=== PATIENT | female | born 1980 | race Caucasian/White ===

== ENCOUNTER 2017-05-10 17:05 | Emergency (ER) | payer OTHER ==
[~2017-05-10] VITALS: Ht 162.6 cm; Wt 70.0 kg
[~2017-05-10 17:05] MED LIST: IBUP800 PO; NEEVCAP PO; PERC5TAB12 PO
[2017-05-10 17:09] VITALS: BP 214/119; PULSE 113; RESP 18; TEMP 98.6; O2SAT 99
--- NOTE | 2017-05-10 17:31 | PD ---
Physical Exam Date Seen by Provider: May 10, 2017 Time Seen by Provider: 17:30 Narrative 37 yo female here for evaluation of HTN. seen by [employer] for regular check up and very high BP noted. Brought here for eval. No symptoms. Not . Vitals are stable in triage. Awaiting bed placement. Data Data Last Documented VS Vital Signs Date Time Temp Pulse Resp B/P (MAP) Pulse Ox O2 Delivery O2 Flow Rate FiO2 05/10/17 17:09 98.6 113 18 214/119 (150) 99 Orders Orders Electrocardiogram (05/10/17 17:25) Complete Blood Count With Diff (05/10/17 17:25) Basic Metabolic Panel (Bmp) (05/10/17 17:25) Ckmb (Isoenzyme) Profile (05/10/17 17:25) Troponin I (05/10/17 17:25) Chest, Single Ap (05/10/17 17:25) Iv Access Insert/Monitor (05/10/17 17:25) Ecg Monitoring (05/10/17 17:25) Oxygen Administration (05/10/17 17:25) Oximetry (05/10/17 17:25) Prothrombin Time / Inr (Pt) (05/10/17 17:25) MDM Medical Record Reviewed: Yes Supervised Visit with LORIN: Solo Pizano May 10, 2017 17:31
[2017-05-10 17:49] VITALS: RESP 18; O2SAT 100
--- NOTE | 2017-05-10 17:59 | PD ---
HPI Chief Complaint: Hypertension Time Seen by Provider: 17:44 Travel History International Travel<30 days: No Contact w/Intl Traveler<30days: No Traveled to known affect area: No History of Present Illness HPI 37-year-old female sent in by her resource director Dr. Watkins for evaluation of elevated blood pressure. The patient was being seen by him today for an annual checkup. Blood pressure was noted to be 180/100 and his office. She denies history of hypertension. States that she is not and has an IUD in place. She denies any symptoms such as headache, paresthesias or motor deficits , chest pain or dyspnea. PFSH Past Medical History Hypertension: Yes ?: Not LMP: IUD : 3 Para: 2 : 1 Past Surgical History Section: Yes Gynecologic Surgery: Yes (C SECTION ) Social History Alcohol Use: No Tobacco Use: No (former smoker stopped in 2006) Substance Use: No Allergies-Medications (Allergen,Severity, Reaction): Coded Allergies: No Known Allergies (Unverified , 05/10/17) Reported Meds & Prescriptions Reported Meds & Active Scripts Active Hydrochlorothiazide 25 Mg Tab 25 Mg PO DAILY Review of Systems Except as stated in HPI: all other systems reviewed are Neg Physical Exam Narrative GENERAL: Well-developed, well-nourished, comfortable, no apparent distress. SKIN: Focused skin assessment warm/dry. HEAD: Atraumatic. Normocephalic. EYES: Pupils equal and round. No scleral icterus. No injection or drainage. ENT: Mucous membranes pink and moist. NECK: Trachea midline. No JVD. CARDIOVASCULAR: Regular rate and rhythm. Distal pulses brisk and equal bilaterally. RESPIRATORY: No accessory muscle use. Clear to auscultation. Breath sounds equal bilaterally. GASTROINTESTINAL: Abdomen soft, non-tender, nondistended. MUSCULOSKELETAL: No obvious deformities. No clubbing. No cyanosis. No edema. NEUROLOGICAL: Awake and alert. No obvious cranial nerve deficits. Motor grossly within normal limits. Normal speech. PSYCHIATRIC: Appropriate mood and affect; insight and judgment normal. Data Data Last Documented VS Vital Signs Date Time Temp Pulse Resp B/P (MAP) Pulse Ox O2 Delivery O2 Flow Rate FiO2 05/10/17 17:49 18 100 Room Air 05/10/17 17:09 98.6 113 Orders Orders Electrocardiogram (05/10/17 17:25) Complete Blood Count With Diff (05/10/17 17:25) Basic Metabolic Panel (Bmp) (05/10/17 17:25) Ckmb (Isoenzyme) Profile (05/10/17 17:25) Troponin I (05/10/17 17:25) Iv Access Insert/Monitor (05/10/17 17:25) Ecg Monitoring (05/10/17 17:25) Oxygen Administration (05/10/17 17:25) Oximetry (05/10/17 17:25) Prothrombin Time / Inr (Pt) (05/10/17 17:25) Hepatic Functional Panel (05/10/17 17:52) Thyroid Stimulating Hormone (05/10/17 17:55) Free Thyroxine (T4) (05/10/17 17:55) Lipid Profile (05/10/17 17:57) Urinalysis - C+S If Indicated (05/10/17 17:57) Hydrochlorothiazide (Hydrodiuril) (05/10/17 19:15) Labs Laboratory Tests Test 05/10/17 17:45 05/10/17 17:50 Urine Color LIGHT-YELLOW Urine Turbidity CLEAR Urine pH 5.5 Urine Specific [place] 1.004 Urine Protein NEG mg/dL Urine Glucose (UA) NEG mg/dL Urine Ketones NEG mg/dL Urine Occult Blood NEG Urine Nitrite NEG Urine Bilirubin NEG Urine Urobilinogen LESS THAN 2.0 MG/DL Urine Leukocyte Esterase NEG Urine WBC LESS THAN 1 /hpf Urine Squamous Epithelial Cells 1 /hpf Microscopic Urinalysis Comment CULT NOT INDICATED White Blood Count 10.1 TH/MM3 Red Blood Count 4.79 MIL/MM3 Hemoglobin 14.2 GM/DL Hematocrit 42.4 % Mean Corpuscular Volume 88.6 FL Mean Corpuscular Hemoglobin 29.7 PG Mean Corpuscular Hemoglobin Concent 33.5 % Red Cell Distribution Width 12.9 % Platelet Count 270 TH/MM3 Mean Platelet Volume 7.8 FL Neutrophils (%) (Auto) 79.0 % Lymphocytes (%) (Auto) 15.1 % Monocytes (%) (Auto) 4.3 % Eosinophils (%) (Auto) 0.8 % Basophils (%) (Auto) 0.8 % Neutrophils # (Auto) 8.0 TH/MM3 Lymphocytes # (Auto) 1.5 TH/MM3 Monocytes # (Auto) 0.4 TH/MM3 Eosinophils # (Auto) 0.1 TH/MM3 Basophils # (Auto) 0.1 TH/MM3 CBC Comment DIFF FINAL Differential Comment Prothrombin Time 9.8 SEC Prothromb Time International Ratio 0.9 RATIO Blood Urea Nitrogen 10 MG/DL Creatinine 0.89 MG/DL Random Glucose 83 MG/DL Calcium Level 9.0 MG/DL Sodium Level 138 MEQ/L Potassium Level 3.7 MEQ/L Chloride Level 105 MEQ/L Carbon Dioxide Level 24.7 MEQ/L Anion Gap 8 MEQ/L Estimat Glomerular Filtration Rate 71 ML/MIN Total Bilirubin 0.4 MG/DL Direct Bilirubin 0.1 MG/DL Indirect Bilirubin 0.3 MG/DL Aspartate Amino Transf (AST/SGOT) 55 U/L Alanine Aminotransferase (ALT/SGPT) 93 U/L Alkaline Phosphatase 86 U/L Total Creatine Kinase 83 U/L Troponin I LESS THAN 0.02 NG/ML Total Protein 7.6 GM/DL Albumin 4.0 GM/DL Triglycerides Level 122 MG/DL Cholesterol Level 282 MG/DL LDL Cholesterol 165 MG/DL HDL Cholesterol 92.7 MG/DL Cholesterol/HDL Ratio 3.04 RATIO Free Thyroxine 0.99 NG/DL Thyroid Stimulating Hormone 3rd Gen 1.180 uIU/ML MDM Medical Decision Making Medical Screen Exam Complete: Yes Emergency Medical Condition: Yes Interpretation(s) EKG: Sinus, rate 88, normal axis, normal intervals, no acute ischemic abnormality. Differential Diagnosis Essential hypertension, hyperthyroidism, hypertensive crisis unlikely, pheochromocytoma Narrative Course Initial vital signs show heart rate 113, blood pressure 214/119, pulse ox 99% on room air, oral temp of 98.6F. Repeat vital signs show heart rate 92 with a blood pressure of 182/98. CBC is unremarkable. CMP is remarkable for AST 55, ALT 93, otherwise unremarkable. Lipid panel was checked at the request of Dr. Watkins and shows total cholesterol 282, LDL cholesterol 165, HDL cholesterol 92.7. TSH is 1.18. Free T4 0.99. Patient made aware of all findings. She is resting comfortably. She is not displaying any signs or symptoms of hypertensive crisis. Given multiple elevated blood pressure readings, she'll be started on hydrochlorothiazide. I have encouraged her to find a primary care physician with whom to follow-up with. She'll be given a copy of all of her lab reports. She has a follow-up appointment with Dr. Watkins in 2 weeks. She was informed on when to return to the emergency department. She verbalizes understanding and agreement with plan. Diagnosis Primary Impression: Hypertension Qualified Codes: I10 - Essential (primary) hypertension Additional Impression: Transaminitis Referrals: Primary Care Physician 3 days Additional Instructions: Follow-up with a primary care physician this week. Return to the emergency department for worsening symptoms or any other concerns. Scripts Hydrochlorothiazide (Hydrochlorothiazide) 25 Mg Tab 25 MG PO DAILY, #30 TAB 2 Refills Prov: Johnny Flores MD 05/10/17 Disposition: 01 DISCHARGE HOME Condition: Stable Johnny Flores MD May 10, 2017 17:59
[2017-05-10 18:17] LABS: BASOPHIL # 0.1 TH/MM3 (0-0.2); BASOPHIL % 0.8 % (0.0-2.0); EOSINOPHIL # 0.1 TH/MM3 (0-0.4); EOSINOPHIL % 0.8 % (0.0-4.0); HEMATOCRIT 42.4 % (35.0-46.0); HEMO FLAGS DIFF FINAL; LYMPH % 15.1 % (9.0-44.0); LYMPHOCYTE # 1.5 TH/MM3 (1.0-4.8); MEAN CELL VOLUME 88.6 FL (80.0-100.0); MEAN CORPUSCULAR HEMOGLOBIN 29.7 PG (27.0-34.0); MEAN CORPUSCULAR HGB CONC 33.5 % (32.0-36.0); MONO % 4.3 % (0.0-8.0); PLATELET COUNT 270 TH/MM3 (150-450); RED BLOOD COUNT 4.79 MIL/MM3 (4.00-5.30); RED CELL DISTRIBUTION WIDTH 12.9 % (11.6-17.2); WHITE BLOOD COUNT 10.1 TH/MM3 (4.0-11.0)
[2017-05-10 18:29] LABS: BLOOD, URINE NEG (NEG); COMMENT (UR) CULT NOT INDICATED; CULTURE IF INDICATED CULT NOT INDICATED; GLUCOSE,URINE NEG (NEG); KETONE, URINE NEG (NEG); NITRITE,URINE NEG (NEG); PH, URINE 5.5 (5.0-8.5); SQUAMOUS EPITHELIAL CELL URINE 1 /hpf (0-5); URINE COLOR LIGHT-YELLOW (YELLW/STRAW)
[2017-05-10 18:34] LABS: ANION GAP 8 MEQ/L (5-15); BICARBONATE 24.7 MEQ/L (21.0-32.0); BLOOD UREA NITROGEN 10 MG/DL (7-18); CHLORIDE 105 MEQ/L (98-107); GLOMERULAR FILTRATION RATE 71 ML/MIN (>89); POTASSIUM 3.7 MEQ/L (3.5-5.1); SODIUM (NA) 138 MEQ/L (136-145)
[2017-05-10 18:37] LABS: INTERNATIONAL NORMALIZED RATIO 0.9 RATIO; PROTHROMBIN TIME - PATIENT 9.8 SEC (9.8-11.6)
[2017-05-10 18:40] LABS: CREATINE KINASE 83 U/L (26-192)
[2017-05-10 18:54] LABS: FREE T4 0.99 NG/DL (0.76-1.46); HDL CHOLESTEROL 92.7 MG/DL (40.0-60.0); INDIRECT BILIRUBIN 0.3 MG/DL (0.0-0.8); TOTAL BILIRUBIN ADULT 0.4 MG/DL (0.2-1.0)
[2017-05-10] MEDS ORDERED: HYDR25TA5 PO (19:09)
[2017-05-10] MEDS ORDERED: HYDROCHLOROTHIAZIDE 25 MG TAB PO ONE (19:15)
[2017-05-10 19:16] VITALS: BP 181/98; PULSE 90; RESP 19; O2SAT 99
--- NOTE | 2017-05-11 17:36 | EKG ---
Date Performed: 05/10/2017 Time Performed: 17:32:53 PTAGE: 37 years EKG: Sinus rhythm NORMAL ECG NO PREVIOUS TRACING DOCTOR: Rubén Barth Interpretating Date/Time 05/11/2017 17:34:00
== END 2017-05-10 19:36 | disposition home or self-care (01) ==
LOC: NEPD 17:05
DX: I10 Essential (primary) hypertension (principal); R74.0 Nonspecific elevation of levels of transaminase and lactic acid dehydrogenase [LDH]; Z87.891 Personal history of nicotine dependence
CPT/HCPCS: 80048; 80061; 80076; 81001; 82550; 84439; 84443; 84484; 85025; 85610; 93005; 99284